=== PATIENT | female | born 1970 | race Caucasian/White ===

== ENCOUNTER 2016-10-18 11:23 | Outpatient (CLI) | payer OTHER ==
[2016-10-18 11:42] LABS: BASOPHILS % 0.4 (0.0-1.5); EOSINOPHILS % 1.5 % (0.0-6.8); MEAN CORPUSCULAR HEMOGLOBIN 29.1 pg (28.0-34.0); MEAN CORPUSCULAR VOLUME 89.3 fl (80.0-100.0); MONOCYTES % 4.7 % (0.0-11.0); NEUTROPHILS # 6.1 # k/uL (1.4-7.7)
[2016-10-18 12:04] LABS: eGFR (African) > 60; eGFR (Non-African) > 60
[2016-10-20 12:11] LABS: ADENOVIRUS F 40/41 Not Detected (Not Detected); ASTROVIRUS Not Detected (Not Detected); C. DIFFICILE (TOXIN A/B) Not Detected (Not Detected); CRYPTOSPORIDIUM Not Detected (Not Detected); CYCLOSPORA CAYETANENSIS Not Detected (Not Detected); ENTAMOEBA HISTOLYTICA Not Detected (Not Detected); GIARDIA LAMBLIA Not Detected (Not Detected); ROTAVIRUS A Not Detected (Not Detected); SAPOVIRUS Not Detected (Not Detected); VIBRIO CHOLERAE Not Detected (Not Detected)
== END 2016-10-18 11:24 ==
LOC: LAB 11:23
PROVIDERS: ATTEND Physician Assistant
DX: R19.7 Diarrhea, unspecified (principal)
CPT/HCPCS: 36415; 80053; 85025; 87507

== ENCOUNTER 2018-04-29 15:12 | Outpatient (CLI) | payer OTHER | END 2018-04-29 15:17 | disposition home or self-care (01) | LOC: LAB 15:12 | PROVIDERS: ATTEND Family Medicine | DX: E03.9 Hypothyroidism, unspecified (principal) | CPT/HCPCS: 36415; 84443 ==

== ENCOUNTER 2018-12-23 17:03 | Outpatient (CLI) | payer OTHER ==
[2018-12-23 17:21] LABS: BASOPHILS % 0.6 % (0.0-1.5); NEUTROPHILS # 5.4 # k/uL (1.4-7.7)
[2018-12-23 17:37] LABS: eGFR (Non-African) > 60
== END 2018-12-23 17:05 ==
LOC: LAB 17:03
PROVIDERS: ATTEND Family Medicine
DX: N18.9 Chronic kidney disease, unspecified (principal)
CPT/HCPCS: 36415; 80053; 85025; 85379